=== PATIENT | female | born 1995 | race African-American/Black ===

== ENCOUNTER 2017-09-27 13:21 | Inpatient (IN) | payer MEDICAID ==
[~2017-09-27] VITALS: Ht 165.1 cm; Wt 79.0 kg
[2017-09-27] MEDS ORDERED: OXYTOCIN 30U/ 0.9% NaCL 500ML 500 ML IV ONE (13:25)
[2017-09-27] MEDS ORDERED: OXYTOCIN 30U/ 0.9% NaCL 500ML 500 ML IV PRN (13:25)
[2017-09-27] MEDS ORDERED: FENTANYL PF 100 MCG/2ML IVPush PRN (13:30)
[2017-09-27] MEDS ORDERED: ONDANSETRON 2MG/ML, 2ML IVPush PRN (13:30)
[2017-09-27] MEDS ORDERED: ALUMINUM/MAG/SIMETHICONE 30 ML UDC PO PRN (13:30)
[2017-09-27] MEDS ORDERED: SODIUM CITRATE/CITRIC ACID 30 ML UDC PO PRN (13:30)
[2017-09-27] MEDS ORDERED: CALCIUM CARBONATE 500 MG TAB.CHEW PO PRN (13:30)
[2017-09-27] MEDS ORDERED: LIDOCAINE 1%, 20ML ONE (13:47)
[2017-09-27] MEDS ORDERED: NEWBORN KIT ONE (13:47)
[2017-09-27] MEDS ORDERED: MISOPROSTOL 200 MCG TABLET ONE (13:47)
[2017-09-27] MEDS ORDERED: OXYTOCIN 30U/ 0.9% NaCL 500ML 500 ML ONE ×2 (13:47→21:52)
[2017-09-27] MEDS ORDERED: PLEASE ENTER HEIGHT AND WEIGHT MC SCH (14:00)
[2017-09-27] MEDS ORDERED: PLEASE ENTER ALLERGIES MC SCH ×2 (14:00)
[2017-09-27 14:23] LABS: DAU SCREEN DISCLAIMER
[2017-09-27] MEDS: LACTATED RINGERS 1,000 ML IV SCH ×3 (14:23→17:24)
[2017-09-27 14:24] LABS: HEMOGLOBIN 9.3 g/dL (11.7-16.4); WHITE BLOOD COUNT 8.6 x10^3/uL (3.4-10)
[2017-09-27] MEDS ORDERED: FENTANYL/BUPIV./NS/PF 250 ML EPIDCONT ONE (16:47)
[2017-09-27] MEDS ORDERED: BUPIVACAINE 0.25% ONE (16:47)
[2017-09-27] MEDS ORDERED: FENTANYL/BUPIV./NS/PF 250 ML EPIDCONT SCH (17:24)
[2017-09-27] MEDS ORDERED: LACTATED RINGERS 1,000 ML IVBOLUS PRN (17:30)
[2017-09-27] MEDS: D5%-LACTATED RINGERS 1,000 ML IV SCH ×2 (18:07→21:25)
[2017-09-27] MEDS ORDERED: MISOPROSTOL 200 MCG TABLET PR PRN (22:00)
[2017-09-27] MEDS ORDERED: METHYLERGONOVINE 0.2 MG/ML IM PRN (22:00)
[2017-09-27] MEDS ORDERED: IBUPROFEN 600 MG TABLET PO PRN (22:00)
[2017-09-27] MEDS ORDERED: BISACODYL 10 MG SUPP PR PRN (22:00)
[2017-09-27] MEDS ORDERED: ONDANSETRON 2MG/ML, 2ML IV PRN (22:00)
[2017-09-27] MEDS ORDERED: ACETAMINOPHEN 325 MG TABLET PO PRN (22:00)
[2017-09-27] MEDS ORDERED: GLYCERIN ADULT SUPP PR PRN (22:00)
[2017-09-27] MEDS ORDERED: METOCLOPRAMIDE 5 MG/ML, 2ML IV PRN (22:00)
[2017-09-27] MEDS ORDERED: CARBOPROST TROMETHAMINE 250 MCG/ML, 1ML IM PRN (22:00)
[2017-09-27] MEDS ORDERED: OXYcodone/APAP 5/325MG TABLET PO PRN ×2 (22:00)
[2017-09-27] MEDS ORDERED: IBUPROFEN 600 MG TABLET ONE (22:12)
[2017-09-27] MEDS: OXYTOCIN 30U/ 0.9% NaCL 500ML 500 ML IV SCH (22:36)
[2017-09-28] VITALS: BP 124/64
[2017-09-28] MEDS: LACTATED RINGERS 1,000 ML IV SCH ×2 (01:24→09:24)
[2017-09-28 04:00] VITALS: BP 112/56
[2017-09-28 04:56] LABS: HEMATOCRIT 25.2 % (34.6-47.8); HEMOGLOBIN 8.3 g/dL (11.7-16.4); WHITE BLOOD COUNT 9.5 x10^3/uL (3.4-10)
[2017-09-28] MEDS: D5%-LACTATED RINGERS 1,000 ML IV SCH (05:25)
[2017-09-28] MEDS: OXYTOCIN 30U/ 0.9% NaCL 500ML 500 ML IV SCH (07:56)
[2017-09-28] MEDS: DOCUSATE 100 MG CAPSULE PO PRN (08:21)
[2017-09-28] MEDS: PRENATAL VIT/IRON/FA 1 EACH TABLET PO SCH (08:21)
[2017-09-28] MEDS: IBUPROFEN 800 MG TABLET PO PRN ×2 (08:21→18:09)
[2017-09-28 08:30] VITALS: BP 125/72
[2017-09-28 19:40] VITALS: BP 120/77
[2017-09-29] MEDS ORDERED: DIPH,PERTUSS(ACELL),TET VAC/PF NC IM-VACC ONE (06:30)
[2017-09-29 09:00] VITALS: BP 122/79
[2017-09-29] MEDS ORDERED: OXYC-302 PO (09:45)
[2017-09-29] MEDS ORDERED: IBUP-1222 PO (09:49)
[2017-09-29] MEDS ORDERED: FERR325T5 PO (09:51)
[2017-09-29] MEDS: DOCUSATE 100 MG CAPSULE PO PRN (11:03)
[2017-09-29] MEDS: PRENATAL VIT/IRON/FA 1 EACH TABLET PO SCH (11:03)
== END 2017-09-29 11:46 | disposition home or self-care (01) | DRG 775 ==
LOC: LDIP 13:21 → 2NW 23:40
PROVIDERS: ADMIT Student in an Organized Health Care Education/Training Program; ATTEND Student in an Organized Health Care Education/Training Program
PROC: 10E0XZZ Delivery of Products of Conception, External Approach (ICD-10-PCS; principal; 2017-09-27)
PROC: 10907ZC Drainage of Amniotic Fluid, Therapeutic from Products of Conception, Via Natural or Artificial Opening (ICD-10-PCS; 2017-09-27)
PROC: 3E0P3VZ Introduction of Hormone into Female Reproductive, Percutaneous Approach (ICD-10-PCS; 2017-09-27)
PROC: 3E0R3BZ Introduction of Anesthetic Agent into Spinal Canal, Percutaneous Approach (ICD-10-PCS; 2017-09-27)
PROC: 00HU33Z Insertion of Infusion Device into Spinal Canal, Percutaneous Approach (ICD-10-PCS; 2017-09-27)
DX: O41.03X0 Oligohydramnios, third trimester, not applicable or unspecified (principal); O66.0 Obstructed labor due to shoulder dystocia; Z37.0 Single live birth; Z3A.39 39 weeks gestation of pregnancy
CPT/HCPCS: 36415; 80307; 81001; 82803; 85025; 86850; 86900; 87086; 90715; G0479; J2590; J7120; J7121

== ENCOUNTER 2020-06-05 18:14 | Emergency (ER) | payer MEDICAID ==
[~2020-06-05] VITALS: Ht 165.1 cm; Wt 69.0 kg
[~2020-06-05 18:14] MED LIST: FERR325T5 PO; IBUP-1222 PO; OXYC-302 PO
--- NOTE | 2020-06-05 18:49 | NUR ---
PT REPORTS BLOOD FROM VAGINA AFTER SEX TODAY. +CRAMPING. PT AWARE OF NEED FOR UA SAMPLE.
--- NOTE | 2020-06-05 18:55 | NUR ---
PT IN [place].
[2020-06-05 19:00] LABS: BASOPHILS # (AUTO) 0.05 x10^3/uL (0-0.1); BASOPHILS % (AUTO) 1 % (0-1); EOSINOPHILS % (AUTO) 2 % (1-7); LYMPHOCYTES % (AUTO) 29 % (22-44); MD NO; MEAN CORPUSCULAR VOLUME 88.2 fL (80-100); MEAN PLATELET VOLUME 9.2 fL (7.4-10.4); MONOCYTES # (AUTO) 0.42 x10^3/uL (0.2-0.8); MONOCYTES % (AUTO) 8 % (2-9); NEUTROPHILS # (AUTO) 3.13 x10^3/uL (1.8-6.8); NEUTROPHILS % (AUTO) 60 % (42-75); PLATELET COUNT 243 x10^3/uL (130-400); RED BLOOD COUNT 3.97 x10^6/uL (3.82-5.3); RED CELL DISTRIBUTION WIDTH 14.9 % (9.6-15.2)
[2020-06-05 19:09] LABS: ALBUMIN 3.1 g/dL (3.4-5.0); ANION GAP 10 mmol/L (5-15); CALCIUM 8.6 mg/dL (8.5-10.1); CHLORIDE 106 mmol/L (98-107)
[2020-06-05 19:22] LABS: MICROSCOPIC INDICATED
[2020-06-05 19:27] LABS: CREATININE 0.56 mg/dL (0.55-1.02)
--- NOTE | 2020-06-05 19:43 | NUR ---
CHART UP FOR MD RECHECK.
[2020-06-05] MEDS ORDERED: CEFTRIAXONE 250 MG ONE (20:15)
[2020-06-05] MEDS ORDERED: AZITHROMYCIN 500 MG TABLET ONE (20:15)
[2020-06-05] MEDS ORDERED: LIDOCAINE-MPF 1%, 2ML ONE (20:16)
[2020-06-05] MEDS ORDERED: CEFTRIAXONE 1,000 MG IM ONE (20:30)
[2020-06-05] MEDS ORDERED: AZITHROMYCIN 500 MG TABLET PO ONE (20:30)
[2020-06-05 20:59] VITALS: BP 100/62
--- NOTE | 2020-06-05 21:07 | NUR ---
OK TO DC PER DR. CHOU.
== END 2020-06-05 21:09 | disposition home or self-care (01) ==
LOC: ED 18:44
DX: O20.0 Threatened abortion (principal); N30.00 Acute cystitis without hematuria; R10.2 Pelvic and perineal pain; Z3A.15 15 weeks gestation of pregnancy
CPT/HCPCS: 36415; 76815; 80048; 81001; 82040; 84703; 85025; 86901; 87086; 87491; 87591; 96372; 99284; J0696; 87077

== ENCOUNTER 2020-09-25 07:05 | Emergency (ER) | payer MEDICAID ==
[~2020-09-25] VITALS: Ht 165.1 cm; Wt 79.5 kg
--- NOTE | 2020-09-25 07:15 | NUR ---
apprentice embalmer note: Called Eugenie RN in L&D to request assistance with heart tones and assessment.
--- NOTE | 2020-09-25 07:31 | NUR ---
L&D RN at bedside
[2020-09-25] MEDS ORDERED: ACETAMINOPHEN 325 MG TABLET ONE (07:53)
[2020-09-25] MEDS ORDERED: SODIUM CHLORIDE 0.9% 1,000ML IVBOLUS ONE (08:00)
[2020-09-25] MEDS ORDERED: ACETAMINOPHEN 325 MG TABLET PO ONE (08:00)
[2020-09-25 08:26] LABS: BASOPHILS % (AUTO) 0 % (0-1); EOSINOPHILS % (AUTO) 0 % (1-7); LYMPHOCYTES % (AUTO) 17 % (22-44); MEAN CORPUSCULAR HEMOGLOBIN 28.8 pg (27.0-34.8); MEAN CORPUSCULAR HGB CONC 34.9 g/dL (32.4-35.8); MONOCYTES % (AUTO) 12 % (2-9); NEUTROPHILS % (AUTO) 71 % (42-75); PLATELET COUNT 226 x10^3/uL (130-400); RED BLOOD COUNT 3.42 x10^6/uL (3.82-5.3); RED CELL DISTRIBUTION WIDTH 13.5 % (9.6-15.2)
[2020-09-25 08:39] LABS: ALANINE AMINOTRANSFERASE 20 U/L (12-78); ALBUMIN 2.7 g/dL (3.4-5.0); ANION GAP 8 mmol/L (5-15); CALCIUM 8.6 mg/dL (8.5-10.1); CHLORIDE 105 mmol/L (98-107)
[2020-09-25 08:41] LABS: MD NO
[2020-09-25 08:42] LABS: ALKALINE PHOSPHATASE 117 U/L (45-117); BILIRUBIN,TOTAL 0.4 mg/dL (0.2-1.0); CREATININE 0.67 mg/dL (0.55-1.02); TOTAL PROTEIN 7.5 g/dL (6.4-8.2)
--- NOTE | 2020-09-25 09:03 | NUR ---
PT DENIES ABILITY TO PRODUCE UA AT THIS TIME. BLANKET PROVIDED PER REQUEST. DENIES FURTHER NEEDS AT THIS TIME
--- NOTE | 2020-09-25 09:58 | NUR ---
PT DENIES ABILITY TO PROVIDE UA AT THIS TIME
[2020-09-25 11:43] VITALS: BP 110/52
== END 2020-09-25 11:45 | disposition home or self-care (01) ==
LOC: ED 08:48
DX: U07.1 COVID-19 (principal); O99.513 Diseases of the respiratory system complicating pregnancy, third trimester; J18.0 Bronchopneumonia, unspecified organism; R00.0 Tachycardia, unspecified; Z3A.30 30 weeks gestation of pregnancy
CPT/HCPCS: 59025; 71045; 80053; 85025; 87635; 96360; 99284; J7030

== ENCOUNTER 2020-09-28 16:59 | Inpatient (IN) | payer OTHER, MEDICAID ==
[~2020-09-28] VITALS: Ht 165.1 cm; Wt 87.0 kg
[2020-09-28] MEDS ORDERED: CEFTRIAXONE PMX 1GM/50ML 50 ML IVPB ONE (18:00)
[2020-09-28] MEDS ORDERED: AZITHROMYCIN 500 MG in SODIUM CHLORIDE 0.9% 250 ML IV ONE (18:00)
[2020-09-28 18:34] LABS: ALBUMIN 2.6 g/dL (3.4-5.0); ANION GAP 8 mmol/L (5-15); CALCIUM 8.6 mg/dL (8.5-10.1); CHLORIDE 105 mmol/L (98-107)
[2020-09-28 18:35] LABS: CREATININE 0.51 mg/dL (0.55-1.02)
[2020-09-28 18:36] LABS: BASOPHILS % (AUTO) 0 % (0-1); EOSINOPHILS % (AUTO) 0 % (1-7); LYMPHOCYTES % (AUTO) 13 % (22-44); MEAN CORPUSCULAR HEMOGLOBIN 27.2 pg (27.0-34.8); MEAN PLATELET VOLUME 8.1 fL (7.4-10.4); MONOCYTES % (AUTO) 5 % (2-9); NEUTROPHILS % (AUTO) 81 % (42-75); PLATELET COUNT 303 x10^3/uL (130-400); RED BLOOD COUNT 4.07 x10^6/uL (3.82-5.3)
[2020-09-28 18:40] LABS: MD NO
[2020-09-28] MEDS ORDERED: CEFTRIAXONE PMX 1GM/50ML 50 ML ONE (18:49)
[2020-09-28 19:40] LABS: C-REACTIVE PROTEIN, QUANT 10.6 mg/dL (0.02-0.49)
--- NOTE | 2020-09-28 19:56 | NUR ---
TASK RN: PT ON [place] BATISTA&D RN AT BEDSIDE FOR NST.
--- NOTE | 2020-09-28 20:22 | NUR ---
NST found to be reactive with a baseline 140-150 and accelerations are present. No contractions were seen or palpated, Positive movement. Patient coughing and unable to stay still throughout. Amnisure collected and delivered to lab.
[2020-09-28] MEDS ORDERED: ACETAMINOPHEN 325 MG TABLET PO ONE (20:30)
[2020-09-28] MEDS ORDERED: ACETAMINOPHEN 325 MG TABLET ONE (20:34)
--- NOTE | 2020-09-28 20:46 | NUR ---
Gabriel cuello in [facility] - 09/28/20 at 2047 by GRACE Negative for Amniotic protein, reported to ARTURO Gannon
--- NOTE | 2020-09-28 20:46 | NUR ---
PT RESTING IN [facility], WATER AND FOOD PROVIDED. PT ON MONITORING, EDGARN AT THIS TIME, WILL CONTINUE TO MONITOR.
--- NOTE | 2020-09-28 20:48 | NUR ---
Negative for amniotic protein, result reported to ARTURO Mayberry
--- NOTE | 2020-09-28 20:52 | NUR ---
HOSPITAL BED REQUESTED FOR COMFORT OF PATIENT.
[2020-09-29] MEDS ORDERED: CEFTRIAXONE PMX 1GM/50ML 50 ML IV SCH
[2020-09-29] MEDS ORDERED: LABETALOL 5MG/ML, 20ML IVPush PRN
[2020-09-29] MEDS ORDERED: ONDANSETRON 2MG/ML, 2ML IVPush PRN
[2020-09-29 00:43] LABS: TROPONIN I < 0.015 ng/mL (0.000-0.045)
[2020-09-29] MEDS ORDERED: ACETAMINOPHEN 325 MG TABLET ONE ×2 (01:47→06:34)
[2020-09-29] MEDS: ACETAMINOPHEN 325 MG TABLET PO PRN ×3 (01:49→20:41)
--- NOTE | 2020-09-29 03:11 | NUR ---
REPORT FROM LINDY MORRIS ASSUMING CARE OF PT AT THIS TIME
[2020-09-29 06:12] LABS: BASOPHILS % (AUTO) 1 % (0-1); EOSINOPHILS % (AUTO) 0 % (1-7); LYMPHOCYTES % (AUTO) 21 % (22-44); MEAN CORPUSCULAR HEMOGLOBIN 27.7 pg (27.0-34.8); MEAN CORPUSCULAR HGB CONC 34.2 g/dL (32.4-35.8); MEAN PLATELET VOLUME 8.1 fL (7.4-10.4); MONOCYTES % (AUTO) 8 % (2-9); NEUTROPHILS % (AUTO) 70 % (42-75); PLATELET COUNT 300 x10^3/uL (130-400); RED BLOOD COUNT 3.87 x10^6/uL (3.82-5.3); RED CELL DISTRIBUTION WIDTH 14.3 % (9.6-15.2)
[2020-09-29 06:16] LABS: ANION GAP 8 mmol/L (5-15); CALCIUM 8.5 mg/dL (8.5-10.1); CHLORIDE 105 mmol/L (98-107); CREATININE 0.35 mg/dL (0.55-1.02); MD NO
--- NOTE | 2020-09-29 07:06 | NUR ---
SBAR RPT REC'D, ASSUMED PT CARE. PT CURRENTLY SLEEPING, RESP EVEN, NON-LABORED. VSS.
--- NOTE | 2020-09-29 07:34 | NUR ---
PT ARROUSES EASILY WHEN RN ENTERS ROOM. Elke BULLOCK RN TO BEDSIDE FOR FHT MONITORING. PT VSS, NAD NOTED. POC DISCUSSED WITH PT AND QUESTIONS ANSWERED. CALL LIGHT W/I REACH.
--- NOTE | 2020-09-29 08:00 | NUR ---
PT OOB NEEDING TO USE BATHROOM. INCONTINENT OF URINE. COMMODE BROUGHT TO ROOM FOR FUTURE USE, BEDSIDE RAIL X 1 DOWN FOR PT ACCESS TO COMMODE. CALL LIGHT W/I REACH
[2020-09-29] MEDS: CHOLECALCIFEROL 5,000u TAB PO SCH (09:30)
--- NOTE | 2020-09-29 09:42 | NUR ---
SURENDRAAR RPT TO ARTURO PRATHER.
[2020-09-29] MEDS ORDERED: DEXAMETHASONE 4 MG TABLET ONE (11:29)
[2020-09-29] MEDS ORDERED: CHOLECALCIFEROL 1,000 UNIT TABLET ONE (11:29)
[2020-09-29] MEDS ORDERED: OMNIPAQUE 350 MG/ML, 100ML BOTTLE ONE (12:06)
[2020-09-29] MEDS ORDERED: DEXAMETHASONE 4 MG/ML, 1ML ONE (12:15)
[2020-09-29] MEDS: DEXAMETHASONE 4 MG/ML, 1ML IVPush SCH (12:18)
[2020-09-29] MEDS: CEFTRIAXONE PMX 2GM/50ML 50 ML IVPB SCH (12:30)
[2020-09-29 14:43] LABS: BILIRUBIN, DIRECT 0.4 mg/dL (0.1-0.2)
[2020-09-29 14:44] LABS: BILIRUBIN,INDIRECT 0.3 mg/dL (0.0-2.0); BILIRUBIN,TOTAL 0.7 mg/dL (0.2-1.0)
[2020-09-29] MEDS ORDERED: REMDESIVIR 200 MG in SODIUM CHLORIDE 0.9% 250 ML IVPB ONE (15:00)
[2020-09-29 15:55] VITALS: BP 106/65
[2020-09-29] MEDS: ASCORBIC ACID 500 MG TABLET PO SCH (17:00)
[2020-09-29] MEDS ORDERED: POTASSIUM CHLORIDE 20 MEQ TAB.ER.PRT PO ONE (17:30)
[2020-09-29] MEDS ORDERED: FUROSEMIDE 40 MG/4 ML IV ONE (17:30)
[2020-09-29] MEDS ORDERED: POTASSIUM CHLORIDE 20 MEQ TAB.ER.PRT ONE (17:52)
[2020-09-29 19:36] VITALS: BP 120/82
[2020-09-29] MEDS: GUAIFENESIN ER 600 MG TABLET PO SCH (20:41)
[2020-09-29] MEDS: ENOXAPARIN 60 MG/0.6 ML SQ SCH ×2 (23:57)
[2020-09-30 00:01] VITALS: BP 104/72
[2020-09-30] MEDS: ACETAMINOPHEN 325 MG TABLET PO PRN ×2 (05:14→21:19)
[2020-09-30 05:38] LABS: ALANINE AMINOTRANSFERASE 26 U/L (12-78); ALBUMIN 2.3 g/dL (3.4-5.0); ANION GAP 7 mmol/L (5-15); CALCIUM 8.6 mg/dL (8.5-10.1); CHLORIDE 103 mmol/L (98-107); CREATININE 0.49 mg/dL (0.55-1.02)
[2020-09-30 05:40] LABS: ALKALINE PHOSPHATASE 160 U/L (45-117); BILIRUBIN,TOTAL 0.5 mg/dL (0.2-1.0); TOTAL PROTEIN 7.2 g/dL (6.4-8.2)
[2020-09-30 07:34] VITALS: BP 104/70
[2020-09-30] MEDS: GUAIFENESIN ER 600 MG TABLET PO SCH ×2 (08:23→20:37)
[2020-09-30] MEDS: CHOLECALCIFEROL 5,000u TAB PO SCH (08:23)
[2020-09-30] MEDS: ASCORBIC ACID 500 MG TABLET PO SCH ×2 (08:23→16:46)
[2020-09-30] MEDS: DEXAMETHASONE 4 MG/ML, 1ML IVPush SCH (08:23)
[2020-09-30] MEDS: FLUTICASONE/VILANTEROL 100-25MCG/INH INH SCH (11:52)
[2020-09-30] MEDS: CEFTRIAXONE PMX 2GM/50ML 50 ML IVPB SCH (11:52)
[2020-09-30 12:46] VITALS: BP 110/74
[2020-09-30] MEDS: REMDESIVIR 100 MG in SODIUM CHLORIDE 0.9% 250 ML IVPB SCH (15:26)
[2020-09-30 19:44] VITALS: BP 114/79
[2020-09-30] MEDS: ENOXAPARIN 60 MG/0.6 ML SQ SCH (23:56)
[2020-10-01 02:32] VITALS: BP 105/60
[2020-10-01 06:29] LABS: ALANINE AMINOTRANSFERASE 29 U/L (12-78); ALBUMIN 2.3 g/dL (3.4-5.0); ANION GAP 8 mmol/L (5-15); CALCIUM 8.8 mg/dL (8.5-10.1); CHLORIDE 105 mmol/L (98-107); CREATININE 0.48 mg/dL (0.55-1.02)
[2020-10-01 06:32] LABS: ALKALINE PHOSPHATASE 151 U/L (45-117); BILIRUBIN,TOTAL 0.4 mg/dL (0.2-1.0); TOTAL PROTEIN 7.1 g/dL (6.4-8.2)
[2020-10-01 09:21] VITALS: BP 103/71
[2020-10-01] MEDS: GUAIFENESIN ER 600 MG TABLET PO SCH ×2 (09:25→20:53)
[2020-10-01] MEDS: CHOLECALCIFEROL 5,000u TAB PO SCH (09:25)
[2020-10-01] MEDS: ASCORBIC ACID 500 MG TABLET PO SCH ×2 (09:25→16:41)
[2020-10-01] MEDS: DEXAMETHASONE 4 MG/ML, 1ML IVPush SCH (09:26)
[2020-10-01] MEDS: FLUTICASONE/VILANTEROL 100-25MCG/INH INH SCH (09:26)
[2020-10-01] MEDS: CEFTRIAXONE PMX 2GM/50ML 50 ML IVPB SCH (12:51)
[2020-10-01 13:41] VITALS: BP 116/81
[2020-10-01] MEDS: ACETAMINOPHEN 325 MG TABLET PO PRN (14:07)
[2020-10-01] MEDS: REMDESIVIR 100 MG in SODIUM CHLORIDE 0.9% 250 ML IVPB SCH (15:44)
[2020-10-01 21:10] VITALS: BP 111/79
[2020-10-02] MEDS: ENOXAPARIN 60 MG/0.6 ML SQ SCH ×2 (00:11→23:34)
[2020-10-02 02:00] VITALS: BP 117/83
[2020-10-02 05:00] LABS: ALANINE AMINOTRANSFERASE 33 U/L (12-78); ALBUMIN 2.3 g/dL (3.4-5.0); ANION GAP 6 mmol/L (5-15); CALCIUM 8.3 mg/dL (8.5-10.1); CHLORIDE 107 mmol/L (98-107); CREATININE 0.46 mg/dL (0.55-1.02)
[2020-10-02 05:03] LABS: ALKALINE PHOSPHATASE 131 U/L (45-117); BILIRUBIN,TOTAL 0.3 mg/dL (0.2-1.0); TOTAL PROTEIN 6.9 g/dL (6.4-8.2)
[2020-10-02 07:05] VITALS: BP 101/68
[2020-10-02] MEDS: CHOLECALCIFEROL 5,000u TAB PO SCH (09:30)
[2020-10-02] MEDS: FLUTICASONE/VILANTEROL 100-25MCG/INH INH SCH (09:30)
[2020-10-02] MEDS: ASCORBIC ACID 500 MG TABLET PO SCH ×2 (09:30→16:23)
[2020-10-02] MEDS: GUAIFENESIN ER 600 MG TABLET PO SCH ×2 (09:30→20:04)
[2020-10-02] MEDS: DEXAMETHASONE 4 MG/ML, 1ML IVPush SCH (09:30)
[2020-10-02] MEDS: CEFTRIAXONE PMX 2GM/50ML 50 ML IVPB SCH (12:30)
[2020-10-02] MEDS: REMDESIVIR 100 MG in SODIUM CHLORIDE 0.9% 250 ML IVPB SCH (15:00)
[2020-10-02 15:58] VITALS: BP 109/73
[2020-10-02 18:43] VITALS: BP 115/70
[2020-10-02] MEDS: ACETAMINOPHEN 325 MG TABLET PO PRN (22:29)
[2020-10-03 01:07] VITALS: BP 113/72
[2020-10-03 06:40] LABS: ALBUMIN 2.2 g/dL (3.4-5.0); ANION GAP 9 mmol/L (5-15); CALCIUM 8.4 mg/dL (8.5-10.1); CHLORIDE 109 mmol/L (98-107)
[2020-10-03 06:43] LABS: ALANINE AMINOTRANSFERASE 39 U/L (12-78); ALKALINE PHOSPHATASE 119 U/L (45-117); BILIRUBIN,TOTAL 0.3 mg/dL (0.2-1.0); CREATININE 0.51 mg/dL (0.55-1.02); TOTAL PROTEIN 6.6 g/dL (6.4-8.2)
[2020-10-03 08:16] VITALS: BP 104/69
[2020-10-03] MEDS: CHOLECALCIFEROL 5,000u TAB PO SCH (08:58)
[2020-10-03] MEDS: DEXAMETHASONE 4 MG/ML, 1ML IVPush SCH (08:58)
[2020-10-03] MEDS: GUAIFENESIN ER 600 MG TABLET PO SCH ×2 (08:58→20:14)
[2020-10-03] MEDS: ASCORBIC ACID 500 MG TABLET PO SCH ×2 (08:58→16:04)
[2020-10-03] MEDS: FLUTICASONE/VILANTEROL 100-25MCG/INH INH SCH (08:58)
[2020-10-03] MEDS: CEFTRIAXONE PMX 2GM/50ML 50 ML IVPB SCH (13:30)
[2020-10-03 14:21] VITALS: BP 116/79
[2020-10-03] MEDS: REMDESIVIR 100 MG in SODIUM CHLORIDE 0.9% 250 ML IVPB SCH (15:22)
[2020-10-03 18:23] VITALS: BP 98/56
[2020-10-03] MEDS: ACETAMINOPHEN 325 MG TABLET PO PRN (20:14)
[2020-10-04 00:14] VITALS: BP 100/64
[2020-10-04] MEDS: ENOXAPARIN 60 MG/0.6 ML SQ SCH (00:17)
[2020-10-04 03:36] VITALS: BP 105/71
[2020-10-04 07:22] VITALS: BP 108/72
[2020-10-04] MEDS: GUAIFENESIN ER 600 MG TABLET PO SCH (09:31)
[2020-10-04] MEDS: DEXAMETHASONE 4 MG/ML, 1ML IVPush SCH (09:31)
[2020-10-04] MEDS: CHOLECALCIFEROL 5,000u TAB PO SCH (09:31)
[2020-10-04] MEDS: ASCORBIC ACID 500 MG TABLET PO SCH (09:31)
[2020-10-04] MEDS: FLUTICASONE/VILANTEROL 100-25MCG/INH INH SCH (09:31)
[2020-10-04] MEDS ORDERED: FLUT1AER INH (12:15)
[2020-10-04] MEDS ORDERED: CHOL500045 PO (12:15)
[2020-10-04] MEDS ORDERED: ASCO500T9 PO (12:15)
[2020-10-04 14:07] VITALS: BP 100/62
== END 2020-10-04 15:37 | disposition home or self-care (01) | DRG 831 ==
LOC: ED 19:25 → INTOOBSV 21:29 → EDIP 21:29 → OBSVTOIN 21:29 → LDIP 09-29 12:45 → 4EST 09-29 18:53
PROVIDERS: ADMIT Family Medicine; ATTEND Family Medicine
PROC: XW033E5 Introduction of Remdesivir Anti-infective into Peripheral Vein, Percutaneous Approach, New Technology Group 5 (ICD-10-PCS; principal; 2020-09-29)
DX: O98.513 Other viral diseases complicating pregnancy, third trimester (principal); U07.1 COVID-19; J12.89 Other viral pneumonia; O99.513 Diseases of the respiratory system complicating pregnancy, third trimester; O36.8330 Maternal care for abnormalities of the fetal heart rate or rhythm, third trimester, not applicable or unspecified; O99.013 Anemia complicating pregnancy, third trimester; D64.9 Anemia, unspecified; Z3A.29 29 weeks gestation of pregnancy
CPT/HCPCS: 36415; 36600; 59025; 71045; 71275; 80048; 80053; 82040; 82247; 82248; 82803; 83605; 83615; 83735; 84100; 84112; 84450; 84460; 84484; 85025; 85379; 86140; 87040; 93005; 99285; G0378; J0456; J0696; J1100; J1650; J1940; Q9967; J7050